=== PATIENT | female | born 1985 | race African-American/Black ===

== ENCOUNTER 2018-08-20 11:36 | Emergency (ER) | payer OTHER, MEDICARE, MEDICAID ==
[2018-08-20 11:51] VITALS: BP 131/79
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
[2018-08-20] MEDS ORDERED: ACETAMINOPHEN 325 MG TABLET PO ONE (12:50)
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
== END 2018-08-20 14:22 | disposition home or self-care (01) ==
LOC: ER 11:36
DX: S76.012A Strain of muscle, fascia and tendon of left hip, initial encounter (principal); S46.912A Strain of unspecified muscle, fascia and tendon at shoulder and upper arm level, left arm, initial encounter; M54.9 Dorsalgia, unspecified; R68.84 Jaw pain; M25.552 Pain in left hip; M25.512 Pain in left shoulder; G89.29 Other chronic pain; V87.7XXA Person injured in collision between other specified motor vehicles (traffic), initial encounter
CPT/HCPCS: 99283